=== PATIENT | female | born 1960 | race Caucasian/White ===

== ENCOUNTER 2017-08-03 16:39 | Emergency (ER) | payer OTHER ==
[2017-08-03 16:43] VITALS: BP 168/89
[2017-08-03 17:07] LABS: BASOPHILS % (AUTO) 0.6 %; EOSINOPHILS # (AUTO) 0.1 10^3/uL (0.0-0.7); HGB - HEMOGLOBIN 13.7 g/dL (12.0-16.0); LYMPHOCYTES # (AUTO) 2.7 10^3/uL (1.5-3.5); LYMPHOCYTES % (AUTO) 37.4 %; MEAN CORPUSCULAR HEMOGLOBIN 31.7 pg (27.0-31.0); MEAN CORPUSCULAR HGB CONC 33.6 g/dL (32.0-36.0); MEAN CORPUSCULAR VOLUME 94.4 fL (81.0-99.0); MEAN PLATELET VOLUME 7.6 fL (7.9-10.8); MONOCYTES # (AUTO) 0.4 10^3/uL (0.0-1.0); MONOCYTES % (AUTO) 5.2 %; NEUTROPHILS % (AUTO) 54.8 %; PLT - PLATELET COUNT 365 10^3/uL (130-450); RED BLOOD COUNT 4.32 10^6/uL (4.20-5.40); RED CELL DISTRIBUTION WIDTH 13.1 % (12.0-15.0); WHITE BLOOD COUNT 7.2 x10^3/uL (4.8-10.8)
[2017-08-03 17:18] LABS: ALBUMIN 4.4 g/dL (3.2-5.5); ALBUMIN/GLOBULIN RATIO 1.1 (1.0-2.2); BILIRUBIN,TOTAL 0.6 mg/dL (0.2-1.0); CREATININE 0.7 mg/dL (0.4-1.0); TOTAL PROTEIN 8.3 g/dL (6.7-8.2)
[2017-08-03] MEDS ORDERED: oxyCOD/ACETAMIN 5 MG/325 MG TABLET PO STA (18:40)
[2017-08-03] MEDS ORDERED: KETOROLAC 60 MG/2 ML VIAL IM STA (18:40)
--- NOTE | 2017-08-03 18:43 | ED Physician Documentation ---
PD HPI ABD PAIN - Stated complaint Stated Complaint: FEM - Chief complaint Chief Complaint: Abd Pain - History obtained from History obtained from: Patient, Family - History of Present Illness Timing - onset: Today Timing - duration: Days (1) Timing - details: Gradual onset Pain level max: 8 Pain level now: 8 Quality: Aching, Dull, Pain Location: Other (R low pelvic) Radiation: Other (non-radiating) Improved by: Other (nothing, hasn't taken any medications for this) Worsened by: Other (nothing) Associated symptoms: No: Fever, Nausea, Vomiting, Hematemesis, Diarrhea, Constipation, Melena, Hematochezia, Dysuria, Hematuria, Vaginal bleeding, Vaginal dc Similar symptoms before: Diagnosis (kidney stones x 5 in the past. Has had lithotripsy.) Recently seen: Not recently seen Review of Systems Ten Systems: 10 systems reviewed and negative Constitutional: denies: Fever, Chills Ears: denies: Ear pain Nose: denies: Rhinorrhea / runny nose, Congestion Throat: denies: Sore throat Cardiac: denies: Chest pain / pressure Respiratory: denies: Cough GI: denies: Vomiting, Diarrhea : denies: Dysuria, Frequency, Hesitancy Skin: denies: Rash Musculoskeletal: denies: Neck pain, Back pain Neurologic: denies: Focal weakness, Numbness PD PAST MEDICAL HISTORY - Past Medical History Past Medical History: Yes : Kidney stones - Past Surgical History Past Surgical History: No - Present Medications Home Medications: Ambulatory Orders Medication Instructions Recorded Confirmed Aspirin [Children's Aspirin] 81 mg PO 08/03/17 Carvedilol 6.25 mg PO 08/03/17 Celecoxib 200 mg PO 08/03/17 Ibuprofen [Motrin] 800 mg PO Q8H PRN #30 tablet 08/03/17 Insulin Glargine [Lantus Solostar] 70 unit DAILY 08/03/17 08/03/17 Ondansetron Odt [Zofran] 4 mg TL Q6H PRN #10 tablet 08/03/17 Oxycodone HCl/Acetaminophen 1 - 2 each PO Q6H PRN #14 tablet 08/03/17 [Percocet 5-325 mg Tablet] Simvastatin 20 mg PO 08/03/17 Telmisartan [Micardis] 40 mg PO 08/03/17 - Allergies Allergies/Adverse Reactions: Allergies Allergy/AdvReac Type Severity Reaction Status Date / Time No Known Drug Allergies Allergy Verified 08/03/17 16:43 - Social History Does the pt smoke?: No Smoking Status: Never smoker Does the pt drink ETOH?: No Does the pt have substance abuse?: No - Immunizations Immunizations are current?: Yes - POLST Patient has POLST: No PD ED PE NORMAL - Vitals Vital signs reviewed: Yes - General General: Alert and oriented X 3, No acute distress, Well developed/nourished - HEENT HEENT: Moist mucous membranes - Neck Neck: Supple, no meningeal sign - Cardiac Cardiac: RRR - Respiratory Respiratory: No respiratory distress, Clear bilaterally - Abdomen Abdomen: Normal bowel sounds, Soft, Non tender, Non distended - Back Back: No CVA TTP, No spinal TTP - Derm Derm: Warm and dry, No rash - Neuro Neuro: Alert and oriented X 3 - Psych Psych: Normal mood, Normal affect Results - Vitals Vitals: Oxygen O2 Source Room air - Labs Labs: Laboratory Tests 08/03/17 08/03/17 08/03/17 16:55 17:00 17:00 WBC 7.2 RBC 4.32 Hgb 13.7 Hct 40.8 MCV 94.4 MCH 31.7 H MCHC 33.6 RDW 13.1 Plt Count 365 MPV 7.6 L Neut # (Auto) 4.0 Lymph # (Auto) 2.7 [place] # (Auto) 0.4 Eos # (Auto) 0.1 Baso # (Auto) 0.0 Absolute Nucleated RBC 0.00 Nucleated RBC % 0.1 Sodium 137 Potassium 3.9 Chloride 99 L Carbon Dioxide 30 Anion Gap 8.0 BUN 11 Creatinine 0.7 Estimated GFR (MDRD) 87 L Glucose 187 H Calcium 10.0 Total Bilirubin 0.6 AST 50 H ALT 51 Alkaline Phosphatase 64 Total Protein 8.3 H Albumin 4.4 Globulin 3.9 Albumin/Globulin Ratio 1.1 Lipase 27 Urine Color ORANGE Urine Clarity HAZY Urine pH 7.0 Ur Specific [place] 1.010 Urine Protein 30 H Urine Glucose (UA) Urine Ketones NEGATIVE Urine Occult Blood LARGE H Urine Nitrite Urine Bilirubin NEGATIVE Urine Urobilinogen Ur Leukocyte Esterase NEGATIVE Urine RBC TNTC H Urine WBC 0-3 Ur Squamous Epith Cells NONE SEEN Urine Bacteria None Seen Ur Microscopic Review INDICATED Urine Culture Comments NOT INDICATED - Rads (name of study) CT abd.pelvis Radiology: Prelim report reviewed, EMP read contemporaneously, See rad report ( 4 mm stone at the right ureterovesicular junction causing mild distal right hydroureter. No significant right hydronephrosis) PD MEDICAL DECISION MAKING - ED course Complexity details: reviewed results, re-evaluated patient, considered differential, d/w patient ED course: Patient is a 56-year-old female with a right distal ureteral stone, 4 mm. Should be able to pass. No evidence of infected stone at this time. Pain well controlled. Will prescribe pain medication for home. We will also prescribe nausea medication for home. Patient counseled regarding signs and symptoms for which I believe and urgent re-evaluation would be necessary. Patient with good understanding of and agreement to plan and is comfortable going home at this time This document was made in part using voice recognition software. While efforts are made to proofread this document, sound alike and grammatical errors may occur. - Sepsis Event Vital Signs: Oxygen O2 Source Room air Departure - Departure Disposition: 01 Home, Self Care Clinical Impression: Renal colic on right side Condition: Good Instructions: ED Stone Renal W Colic Follow-Up: your,doctor in 1 week [Other] Prescriptions: Ibuprofen [Motrin] 800 mg PO Q8H PRN #30 tablet PRN Reason: PAIN &/OR FEVER Ondansetron Odt [Zofran] 4 mg TL Q6H PRN #10 tablet PRN Reason: Nausea / Vomiting Oxycodone HCl/Acetaminophen [Percocet 5-325 mg Tablet] 1 - 2 each PO Q6H PRN # 14 tablet PRN Reason: pain Comments: You do have a 4 mm stone at the right ureterovesicular junction. This should pass. There does not appear to be an infection associated with this at this time. Return if you worsen. Do not drink alcohol or drive while on narcotic pain medicine. Note that many narcotic pain relievers also contain tylenol/acetaminophen. Please ensure that your total dose of acetaminophen from all sources does not exceed 3 grams (3000mg) per day. You may constipated on this medication, take a stool softener such as "Colace" twice a day while you are on it. Also recommend a [id number]-[id number] laxative such as senna or MiraLAX any day that you do not have a bowel movement. If you received narcotic pain medication in the emergency department, do not drive or operate machinery for the next 24 hours. Discharge Date/Time: 08/03/17 20:34
[2017-08-03 18:44] LABS: BILIRUBIN,URINE NEGATIVE (NEGATIVE); KETONES,URINE (UA) NEGATIVE (NEGATIVE); LEUKOCYTE ESTERASE, URINE NEGATIVE (NEGATIVE); OCCULT BLOOD,URINE LARGE (NEGATIVE); PROTEIN,URINE 30 mg/dL (NEGATIVE)
[2017-08-03 18:50] LABS: CLARITY,URINE HAZY (CLEAR)
[2017-08-03 19:00] LABS: BACTERIA,URINE None Seen /HPF (None Seen); RBC,URINE TNTC /HPF (0-5); SQUAMOUS EPITHELIAL CELL,UR NONE SEEN (<= Few)
[2017-08-03] MEDS ORDERED: IOPAMIDOL-300 100 ML VIAL ONE (19:20)
[2017-08-03] MEDS ORDERED: IOPAMIDOL-300 100 ML VIAL IVP ONE (19:55)
--- NOTE | 2017-08-03 20:18 | CT Report ---
Procedure Date: 08/03/2017 Accession Number: [id number] / [id number] Procedure: CT - Abdomen/Pelvis W/ CPT Code: FULL RESULT: EXAM: CT ABDOMEN AND PELVIS EXAM DATE: 08/03/2017 07:53 PM. CLINICAL HISTORY: R low pelvic pain. COMPARISONS: None. TECHNIQUE: Routine helical CT imaging was performed through the abdomen and pelvis. IV contrast: ISOVUE 300 100mL. Enteric contrast: No. Reconstructions: Coronal and sagittal. In accordance with CT protocol optimization, one or more of the following dose reduction techniques were utilized for this exam: automated exposure control, adjustment of mA and/or KV based on patient size, or use of iterative reconstructive technique. FINDINGS: Lung Bases: Unremarkable. Liver: Mildly enlarged. No focal lesion. Gallbladder/Bile Ducts: Unremarkable. Spleen: Calcification and mild low attenuation in the anterior spleen likely mild scarring. Pancreas: Atrophic. Adrenal Glands: Normal. Kidneys: 4 mm stone at the right ureterovesical junction. Mild distal right hydroureter. No significant right hydronephrosis. Symmetric renal enhancement. No left hydronephrosis or left-sided stones. Peritoneal Cavity/Bowel: No free fluid, free air or adenopathy. There are a few colonic diverticula. No masses or acute inflammatory process. The appendix is well visualized and normal. Pelvic Organs: Urinary bladder is mostly decompressed. No wall thickening. Uterus is absent. Vasculature: No aneurysms or other significant abnormality. Bones: No significant abnormality. Other: Soma gas in the left gluteal fat is likely injection. IMPRESSION: 4 mm stone at the right ureterovesical junction causing mild distal right hydroureter. No significant right hydronephrosis. [facility]
[2017-08-03] MEDS ORDERED: ONDANSETRON 4 MG/2 ML VIAL IVP STA (20:21)
== END 2017-08-03 20:34 | disposition home or self-care (01) ==
LOC: ED 16:39
DX: N20.0 Calculus of kidney (principal); Z87.442 Personal history of urinary calculi; Z79.82 Long term (current) use of aspirin
CPT/HCPCS: 36415; 74177; 80053; 81001; 83690; 85025; 96372; 96374; 99283; 99284; A9270; Q9967; 81003; 87086